=== PATIENT | male | born 1990 | race African-American/Black ===

== ENCOUNTER 2024-09-19 12:15 | Emergency (ER) | payer OTHER, SELFPAY ==
[2024-09-19 12:20] VITALS: BP 106/70; PULSE 62; TEMP 36.8; O2SAT 100; BMI 15.8
--- NOTE | 2024-09-19 12:45 | ED_ITS ---
HPI HPI - General Adult General Chief complaint: Eye Problems Stated complaint: eye irritation Source: patient Mode of arrival: ambulance History of Present Illness HPI narrative: The patient is a 34-year-old -Marshallese male who presents to the ER today for evaluation of concerns for vague complaints of discomfort to his right cheek and ear. He is a very vague and confusing historian. He denies any headaches, vision difficulties, neck or back pain. No fevers or cough/cold symptoms. He ultimately disclosed that when he lays on his right side with his head down is when this pain comes on. He states he is traveling and living out of his car currently. He mentions he is traveling from [facility] and does not know where he is traveling next. He additionally mentions he has not been eating much due to not having enough money. He denies any dizziness or syncope. No abdominal pain or nausea/vomiting/diarrhea. He denies any urinary symptoms. He denies any significant medical or surgical history. Related Data Allergies Allergy/AdvReac Type Severity Reaction Status Date / Time acetaminophen (From Tylenol) Allergy Severe Unknown Verified 09/19/24 12:20 Review of Systems ROS Status of ROS 10 or more systems reviewed and unremark able except as noted in history and below PFSH PFSH Social History Little interest or pleasure in doing things: not at all Feeling down, depressed, or hopeless: not at all Exam Narrative Exam Narrative: Constituational: Awake/ alert, no apparent distress, thin, appears older than stated age HENMT: normocephalic, internal/external ears normal, moist oral mucous membranes and oropharynx normal, no trismus, no stridor Eyes: EOMI/ PERRL and conjunctivae normal Neck: ROM intact Chest: inspection of chest normal Respiratory: Normal respiratory effort, clear to auscultation bilaterally Cardio: regular rate and regular rhythm GI: soft to palpation and non-tender Back: nontender MSK: ROM intact, +NVI Skin: no rashes or petechiae Neuro: no focal deficits Psych: mental status grossly normal Constitutional Vital Signs, click to edit/add: Last Vital Signs Temp 98.2 F 09/19/24 12:20 Pulse 62 09/19/24 12:20 Resp 18 09/19/24 12:20 BP 106/70 09/19/24 12:20 Pulse Ox 100 09/19/24 12:20 O2 Del Method Room Air 09/19/24 12:20 Course Vital Signs Vital signs: Vital Signs Temperature 98.2 F 09/19/24 12:20 Pulse Rate 62 09/19/24 12:20 Respiratory Rate 18 09/19/24 12:20 Blood Pressure 106/70 09/19/24 12:20 Pulse Oximetry 100 09/19/24 12:20 Oxygen Delivery Method Room Air 09/19/24 12:20 Temperature 98.2 F 09/19/24 12:20 Pulse Rate 62 09/19/24 12:20 Respiratory Rate 18 09/19/24 12:20 Blood Pressure 106/70 09/19/24 12:20 Pulse Oximetry 100 09/19/24 12:20 Oxygen Delivery Method Room Air 09/19/24 12:20 Medical Decision Making MDM Narrative Medical decision making narrative: The patient is a nontoxic-appearing 34-year-old -Marshallese male presented to the ER today for evaluation of concerns for question of right cheek and ear pain. Initial examination vital signs overall stable. With exception patient does appear thin and ultimately disclose that he is homeless and living out of his car currently. Pain to the right cheek and ear seems to be brought on when he is laying down and trying to sleep on that side. No evidence of infectious processes such as cellulitis or abscess, no orbital/periorbital cellulitis or injuries. No evidence of otitis. Additionally no evidence concerning for trauma or injury to the face. He ultimately endorsed it is hot outside and he needs a place to get a meal and cool off. He was given lunch and 2 Gatorade bottles. Vital signs are otherwise stable. He was offered Tylenol and ibuprofen for the pain in his face and ear which she declined. He mention he would solely like an ice pack. On reevaluation he continues to be well- appearing and hemodynamically stable. He was provided referral for primary care provider. Discussed signs and symptoms of any worsening condition and when to consider reevaluation by the emergency department. Patient verbalized an understanding of this and is agreeable with the plan to be discharged home. Medical Records Medical records reviewed: Yes I reviewed the patient's medical records Discharge Plan Discharge Chief Complaint: Eye Problems Clinical Impression: Homelessness Patient Disposition: Home, Self-Care Print Language: Bengali Additional Instructions: Tylenol and ibuprofen for any pain. May ice any sore areas of your concern for facial pain. Referrals: Jose Roblero MD [Physician, Family Practice] - 1 week
--- NOTE | 2024-09-19 12:56 | ED_ITS ---
HPI HPI - General Adult General Chief complaint: Eye Problems Stated complaint: eye irritation Source: patient Mode of arrival: ambulance Related Data Allergies Allergy/AdvReac Type Severity Reaction Status Date / Time acetaminophen (From Tylenol) Allergy Severe Unknown Verified 09/19/24 12:20 PFSH PFSH Social History Little interest or pleasure in doing things: not at all Feeling down, depressed, or hopeless: not at all Exam Constitutional Vital Signs, click to edit/add: Last Vital Signs Temp 98.2 F 09/19/24 12:20 Pulse 62 09/19/24 12:20 Resp 18 09/19/24 12:20 BP 106/70 09/19/24 12:20 Pulse Ox 100 09/19/24 12:20 O2 Del Method Room Air 09/19/24 12:20 Course Vital Signs Vital signs: Vital Signs Temperature 98.2 F 09/19/24 12:20 Pulse Rate 62 09/19/24 12:20 Respiratory Rate 18 09/19/24 12:20 Blood Pressure 106/70 09/19/24 12:20 Pulse Oximetry 100 09/19/24 12:20 Oxygen Delivery Method Room Air 09/19/24 12:20 Temperature 98.2 F 09/19/24 12:20 Pulse Rate 62 09/19/24 12:20 Respiratory Rate 18 09/19/24 12:20 Blood Pressure 106/70 09/19/24 12:20 Pulse Oximetry 100 09/19/24 12:20 Oxygen Delivery Method Room Air 09/19/24 12:20 Discharge Plan Discharge Chief Complaint: Eye Problems Clinical Impression: Homelessness Patient Disposition: Home, Self-Care Print Language: Estonian Additional Instructions: Tylenol and ibuprofen for any pain. May ice any sore areas of your concern for facial pain. Follow up with resources provided by the ER today including shelters. Referrals: Jose Roblero MD [Physician, Family Practice] - 1 week
== END 2024-09-19 14:59 | disposition home or self-care (01) ==
PROVIDERS: Emergency Provider Emergency Medicine
DX: Z59.00 Homelessness unspecified (principal); H92.01 Otalgia, right ear; G50.1 Atypical facial pain
CPT/HCPCS: 99283

== ENCOUNTER 2024-09-23 11:28 | Emergency (ER) | payer OTHER, SELFPAY ==
[2024-09-23 11:31] VITALS: BP 113/77; PULSE 49; TEMP 36.6; O2SAT 100; BMI 15.7
--- NOTE | 2024-09-23 11:49 | ECG_ITS ---
[facility] Test Date: 2024-09-23 Pat Name: JEANNINE POST Department: Room: - Gender: Male Human Resources Officer: : 1990 Requested By: 1030 Order Number: [id number] Reading MD: LINWOOD YOUNG Measurements Intervals [place] Rate: 47 P: 40 TX: 150 QRS: 60 QRSD: 96 T: 50 QT: 440 QTc: 405 Interpretive Statements 1130 Sinus bradycardia 40737 Early repolarization 9140 abnormal rhythm ECG No previous ECG available for comparison Electronically Signed On 09-25-2024 9:46:26 EDT by LINWOOD YOUNG
--- NOTE | 2024-09-23 11:50 | ED.GENADUL1 ---
HPI HPI - General Adult General Chief complaint: Recheck/Abnormal Lab/Rx Stated complaint: WEAKNESS Time Seen by Provider: 09/23/24 11:39 Source: patient and law enforcement Mode of arrival: ambulance Limitations: no limitations History of Present Illness HPI narrative: 34-year-old male presents to the emergency department for driving erratically. He was pulled over by police and they thought that he was acting abnormal so paramedics were called and he was brought here. He does not seem to have any physical complaints other than being hungry. He left [facility] emergency department this morning he states at 8 AM. He was seen 4 days ago here and at that time was given a meal and diagnosed with homelessness. He has been living out of his car for the last 2 to 2-1/2 years. He has been getting food from [employer] and food shelters. Related Data Home Medications ?Medication ?Instructions ?Recorded ?Confirmed No Known Home Medications 09/23/24 09/23/24 Allergies Allergy/AdvReac Type Severity Reaction Status Date / Time acetaminophen (From Tylenol) Allergy Severe Unknown Verified 09/23/24 11:31 Opioid HPI Opioid Management Most Recent Opioid Data: Ur Phencyclidine Scrn, (NEGATIVE) Negative Today, 12:00 Review of Systems ROS Narrative A ten point review of systems is negative except as noted above. PFSH PFSH Social History Little interest or pleasure in doing things: not at all Feeling down, depressed, or hopeless: not at all Exam Narrative Exam Narrative: Nurses note and vital signs reviewed and patient is not hypoxic. General: The patient appears in no apparent distress. Patient is resting comfortably on cart. He is quite thin. Skin: Warm, dry, no pallor noted. There is no rash noted. Head: Normocephalic, atraumatic Eye: Normal conjunctiva, no drainage Ears, Nose, Mouth, and Throat: oral mucosa is moist. Nares patent. Cardiovascular: Regular Rate and Rhythm Respiratory: Patient is in no distress, no accessory muscle use, lungs are clear to auscultation, no wheezing, rales or rhonchi Back: non-tender GI: Soft and nontender Musculoskeletal: The patient has no evidence of calf tenderness, no pitting edema, symmetrical pulses noted bilaterally Neurological: A&O x4, normal speech Psychiatric: Cooperative Constitutional Vital Signs, click to edit/add: Last Vital Signs Temp 98 F 09/23/24 11:31 Pulse 49 L 09/23/24 11:31 Resp 18 09/23/24 11:31 BP 113/77 09/23/24 11:31 Pulse Ox 100 09/23/24 11:31 O2 Del Method Room Air 09/23/24 11:31 Course Vital Signs Vital signs: Vital Signs Temperature 98 F 09/23/24 11:31 Pulse Rate 49 L 09/23/24 11:31 Respiratory Rate 18 09/23/24 11:31 Blood Pressure 113/77 09/23/24 11:31 Pulse Oximetry 100 09/23/24 11:31 Oxygen Delivery Method Room Air 09/23/24 11:31 Temperature 98 F 09/23/24 11:31 Pulse Rate 49 L 09/23/24 11:31 Respiratory Rate 18 09/23/24 11:31 Blood Pressure 113/77 09/23/24 11:31 Pulse Oximetry 100 09/23/24 11:31 Oxygen Delivery Method Room Air 09/23/24 11:31 Medical Decision Making MDM Narrative Medical decision making narrative: His laboratory analysis is negative. The patient was seen at another hospital emergency department this morning and had a group social worker consult. He refused all assistance that they offered. I suspect that he may be going from emergency department to the emergency department to obtain food. He is able to be released. Differential Diagnosis Differential Diagnosis: Poor social situation, homelessness Lab Data Lab results reviewed: Yes I reviewed the patient's lab results Labs: Lab Results 09/23/24 09/23/24 Range/Units 12:00 12:06 WBC 5.4 (4.0-11.0) 10^3/uL RBC 4.52 L (4.70-6.10) 10^6/uL Hgb 13.3 L (14.0-18.0) g/dL Hct 40.4 L (42.0-54.0) % MCV 89.4 (80.0-94.0) fL MCH 29.4 (25.9-34.0) pg MCHC 32.9 (29.9-35.2) g/dL RDW 12.1 (11.0-15.0) % Plt Count 270 (150-450) 10^3/uL MPV 10.6 (9.5-13.5) fL Neut % (Auto) 59.5 (43.0-75.0) % Lymph % (Auto) 30.2 (20.5-60.0) % [place] % (Auto) 5.4 (1.7-12.0) % Eos % (Auto) 3.2 (0.9-7.0) % Baso % (Auto) 1.3 (0.2-2.0) % Neut # (Auto) 3.2 (1.4-6.5) 10^3/uL Lymph # (Auto) 1.6 (1.2-3.8) 10^3/uL [place] # (Auto) 0.3 (0.3-0.8) 10^3/uL Eos # (Auto) 0.2 (0.0-0.7) 10^3/uL Baso # (Auto) 0.1 (0.0-0.1) 10^3/uL Abs Immat Gran (auto) 0.02 (0.00-0.03) 10^3/uL Imm/Tot Granulo (auto) 0.4 (0.0-0.5) % Sodium 139 (136-145) mmol/L Potassium 3.5 (3.5-5.1) mmol/L Chloride 103 (98-107) mmol/L Carbon Dioxide 27.6 (21.0-32.0) mmol/L Anion Gap 11.9 BUN 16.0 (7.0-18.0) mg/dL Creatinine 0.73 (0.70-1.30) mg/dL Est GFR ( Amer) >60 (>=60 mL/min/1.73m^2) Est GFR (Non-Af Amer) >60 (>=60 mL/min/1.73m^2) BUN/Creatinine Ratio 21.9 Glucose 80 (74-106) mg/dL Calcium 9.3 (8.5-10.1) mg/dL Urine Color Yellow (YELLOW) Urine Clarity Clear (CLEAR) Urine pH 6.0 (5.0-9.0) Ur Specific [place] >=1.030 A (1.005-1.025) Urine Protein Negative (NEG/TRACE) mg/dL Urine Glucose (UA) Negative (NEGATIVE) mg/dL Urine Ketones 15 A (NEGATIVE) mg/dL Urine Occult Blood Negative (NEGATIVE) Urine Nitrite Negative (NEGATIVE) Urine Bilirubin Negative (NEGATIVE) Urine Urobilinogen 1.0 (0.2-1.0) EU/dL Ur Leukocyte Esterase Negative (NEGATIVE) Urine RBC 0-2 (0-2) #/HPF Urine WBC 0-2 A (NONE SEEN) #/HPF Ur Squamous Epith Cells None seen (NONE/RARE) #/LPF Urine Crystals None seen (None Seen) #/HPF Urine Bacteria None seen (NONE SEEN) #/HPF Urine Casts None seen (NONE SEEN) #/LPF Urine Mucus Moderate A (NONE SEEN) Urine Opiates Screen Negative (NEGATIVE) Ur Buprenorphine Scrn Negative (NEGATIVE) Ur Oxycodone Screen Negative (NEGATIVE) Urine Methadone Screen Negative (NEGATIVE) Ur Barbiturates Screen Negative (NEGATIVE) U Tricyclic Antidepress Negative (NEGATIVE) Ur Phencyclidine Scrn Negative (NEGATIVE) Ur Amphetamines Screen Negative (NEGATIVE) U Methamphetamines Scrn Negative (NEGATIVE) U Benzodiazepines Scrn Negative (NEGATIVE) Urine Cocaine Screen Negative (NEGATIVE) U Cannabinoids Screen Negative (NEGATIVE) Ethanol Quant <3 mg/dL Discharge Plan Discharge Chief Complaint: Recheck/Abnormal Lab/Rx Clinical Impression: Homelessness, Food hunger Patient Disposition: Home, Self-Care Time of Disposition Decision: 12:57 Condition: Good Mode of Transportation: Private Vehicle Prescriptions / Home Meds: No Action No Known Home Medications Print Language: Hong Konger Instructions: Normal Exam (ED) Referrals: Physician,Non-Staff, MD [Primary Care Provider] - 1 week
[2024-09-23 12:09] VITALS: PULSE 48
[2024-09-23 12:15] LABS: Hematocrit 40.4 % (42.0-54.0); Hemoglobin 13.3 g/dL (14.0-18.0); Immature Granulocytes Abs Auto 0.02 10^3/uL (0.00-0.03); Immature Granulocytes Pct Auto 0.4 % (0.0-0.5); Lymphocytes Absolute Auto 1.6 10^3/uL (1.2-3.8); Mean Corpuscular HGB Conc 32.9 g/dL (29.9-35.2); Mean Corpuscular Hemoglobin 29.4 pg (25.9-34.0); Mean Corpuscular Volume 89.4 fL (80.0-94.0); Platelet Count 270 10^3/uL (150-450); Red Blood Count 4.52 10^6/uL (4.70-6.10); White Blood Count 5.4 10^3/uL (4.0-11.0)
[2024-09-23 12:18] LABS: Glucose Urine UA NEGATIVE (NEGATIVE)
[2024-09-23 12:26] LABS: Anion Gap 11.9; Blood Urea Nitrogen 16.0 mg/dL (7.0-18.0); Calcium 9.3 mg/dL (8.5-10.1); Carbon Dioxide 27.6 mmol/L (21.0-32.0); Chloride 103 mmol/L (98-107); Estimated GFR (African America >60 (>=60 mL/min/1.73m^2); Estimated GFR (Non-African Ame >60 (>=60 mL/min/1.73m^2); Glucose 80 mg/dL (74-106); Potassium 3.5 mmol/L (3.5-5.1); Sodium 139 mmol/L (136-145)
[2024-09-23 12:33] LABS: Cannabinoid Screen Urine NEGATIVE (NEGATIVE); Methamphetamines Screen Urine NEGATIVE (NEGATIVE); Tricyclic Antidepressant Urine NEGATIVE (NEGATIVE)
[2024-09-23 12:37] LABS: Cast Seen? NONE SEEN #/LPF (NONE SEEN); Crystals Seen? None Seen #/HPF (None Seen)
== END 2024-09-23 13:23 | disposition home or self-care (01) ==
PROVIDERS: Emergency Provider Emergency Medicine
DX: Z59.48 Other specified lack of adequate food (principal); Z59.02 Unsheltered homelessness
CPT/HCPCS: 36415; 80048; 80307; 80320; 81001; 85025; 93005; 99284

== ENCOUNTER 2024-09-24 13:29 | Emergency (ER) | payer OTHER, SELFPAY ==
[2024-09-24 13:35] VITALS: BP 109/75; PULSE 56; TEMP 36.8; O2SAT 99; BMI 20.6
--- NOTE | 2024-09-24 13:44 | ED.GENADUL1 ---
HPI HPI - General Adult General Chief complaint: Psychiatric Symptoms Stated complaint: EVALUATION Time Seen by Provider: 09/24/24 13:34 Source: patient and law enforcement Mode of arrival: walk-in Limitations: altered mental status History of Present Illness HPI narrative: The patient is a 34-year-old -Kos[place] male who re presents to the emergency department after police were called due to his car [place]. On arrival to the ER patient is answering questions appropriately. He endorses he was here earlier today wanting pancakes. Otherwise is not very forthcoming with providing much history. Medical crisis was called in by police to the scene as he was brought into the ER yesterday by police for erratic like driving and was medically cleared at that time and discharged per chart review. Denies any SI/HI or hallucinations. He states he is trying to get back home to [facility]. He mentions he has been gone from home for a few days. He otherwise has no complaints on arrival to the ER including chest pain, shortness of breath. No sick symptoms including abdominal pain or nausea/vomiting/diarrhea. He denies any significant medical or surgical history. Related Data Home Medications ?Medication ?Instructions ?Recorded ?Confirmed No Known Home Medications 09/23/24 09/23/24 Allergies Allergy/AdvReac Type Severity Reaction Status Date / Time acetaminophen (From Tylenol) Allergy Severe Unknown Verified 09/23/24 11:31 Opioid HPI Opioid Management Most Recent Opioid Data: Ur Phencyclidine Scrn, (NEGATIVE) Negative 09/23/24, 12:00 Review of Systems ROS Status of ROS 10 or more systems reviewed and unremarkable except as noted in history and below PFSH PFSH Social History Little interest or pleasure in doing things: not at all Feeling down, depressed, or hopeless: not at all Exam Narrative Exam Narrative: Constituational: Awake/ alert, no apparent distress, thin and appears older than stated age HENMT: normocephalic, external ears normal, moist oral mucous membranes and oropharynx normal Eyes: EOMI and conjunctivae normal Neck: ROM intact Chest: inspection of chest normal Respiratory: Normal respiratory effort, clear to auscultation bilaterally Cardio: regular rate and regular rhythm GI: soft to palpation and non-tender Back: nontender MSK: ROM intact, +NVI Skin: no rashes or petechiae Neuro: no focal deficits, a/o x4 Psych: No SI/HI or hallucinations, withdrawn, poor eye contact, otherwise mental status grossly normal Constitutional Vital Signs, click to edit/add: Last Vital Signs Temp 98.3 F 09/24/24 13:35 Pulse 53 L 09/24/24 14:33 Resp 16 09/24/24 14:34 BP 103/88 09/24/24 14:33 Pulse Ox 100 09/24/24 14:35 O2 Del Method Room Air 09/24/24 14:35 Course Vital Signs Vital signs: Vital Signs Temperature 98.3 F 09/24/24 13:35 Pulse Rate 56 L 09/24/24 13:35 Respiratory Rate 18 09/24/24 13:35 Blood Pressure 109/75 09/24/24 13:35 Pulse Oximetry 99 09/24/24 13:35 Oxygen Delivery Method Room Air 09/24/24 13:35 Temperature 98.3 F 09/24/24 13:35 Pulse Rate 53 L 09/24/24 14:33 Respiratory Rate 16 09/24/24 14:34 Blood Pressure 103/88 09/24/24 14:33 Pulse Oximetry 100 09/24/24 14:35 Oxygen Delivery Method Room Air 09/24/24 14:35 Medical Decision Making MDM Narrative Medical decision making narrative: Patient is a cooperative 34-year-old -Kos[place] male who has had multiple visits to the emergency department in the past week for homelessness and being picked up by local PD due to activity in his vehicle with erratic driving and parking [facility]. Patient presented today with medical crisis due to to recommendations by police for evaluation as he has been seen by police around the area multiple times and exhibiting potentially odd behavior and loitering. Emanation of vital signs overall stable. He is alert A/0 x 4. No SI/HI or hallucinations. Due to ED visit yesterday which time he had medical clearance labs that were subsequently stable. He has no complaints here today. He was evaluated by medical crisis and offered placement in possible homeless shelters however he declined. He does not meet behavioral critieria for psychiatric facility admission. He was reevaluated multiple times while in the emergency department. He was provided water. He wishes to be discharged. Advised that he follow-up with the resources provided by crisis team and advised that he may return to the ER at anytime with any concerns. Medical Records Medical records reviewed: Yes I reviewed the patient's medical records Lab Data Lab results reviewed: Yes I reviewed the patient's lab results Discharge Plan Discharge Chief Complaint: Psychiatric Symptoms Clinical Impression: Homelessness Patient Disposition: Home, Self-Care Prescriptions / Home Meds: No Action No Known Home Medications Print Language: Jamaican Additional Instructions: Please follow-up with the resources provided by medical crisis. If you are in your vehicle please park in safe places. Referrals: Physician,Non-Staff, MD [Primary Care Provider] - 1 week
--- NOTE | 2024-09-24 13:49 | PC.NURSE ---
Pt has been in the ER multiple times for same thing. Brought in by social insurance adviser staff that were called by the police dept. Pt is homeless and living in a car. This facility has tried multiple times to assist this pt with whatever we can. Pt has been given several recourses to use but continues to return to this ER.
[2024-09-24 14:33] VITALS: BP 103/88; PULSE 53; O2SAT 100
[2024-09-24 14:34] VITALS: O2SAT 100
[2024-09-24 14:35] VITALS: O2SAT 100
== END 2024-09-24 15:23 | disposition home or self-care (01) ==
PROVIDERS: Emergency Provider Emergency Medicine
DX: R46.89 Other symptoms and signs involving appearance and behavior (principal); Z59.02 Unsheltered homelessness
CPT/HCPCS: 99281